=== PATIENT | female | born 1995 | race Caucasian/White ===

== ENCOUNTER 2018-11-03 19:09 | Emergency (ER) | payer OTHER ==
[~2018-11-03] VITALS: Ht 167.6 cm; Wt 77.3 kg
[2018-11-03] MEDS ORDERED: calcium (19:17)
[2018-11-03] MEDS ORDERED: prenatal (19:17)
[2018-11-03] MEDS ORDERED: FAMOTIDINE IV BAG 20 MG in APPROPRIATE DILUENT 1 EA IV ONE (20:30)
[2018-11-03] MEDS ORDERED: diphenhydrAMINE INJ 50MG/ML VIAL (J1200) IV ONE (20:30)
[2018-11-03] MEDS ORDERED: methylPREDNISolone INJ 125 MG/2 ML VIAL (J2930) IV ONE (20:30)
[2018-11-03] MEDS ORDERED: PEPC1TAB5 PO (22:35)
[2018-11-03] MEDS ORDERED: PRED20TA PO (22:35)
[2018-11-03] MEDS ORDERED: BENA25CA4 PO (22:35)
[2018-11-03 22:59] VITALS: BP 125/76
== END 2018-11-03 23:01 | disposition home or self-care (01) ==
LOC: M ED 19:09
DX: R21 Rash and other nonspecific skin eruption (principal); R13.10 Dysphagia, unspecified; T78.40XA Allergy, unspecified, initial encounter; X58.XXXA Exposure to other specified factors, initial encounter; Y92.89 Other specified places as the place of occurrence of the external cause; F17.210 Nicotine dependence, cigarettes, uncomplicated
CPT/HCPCS: 96365; 96375; 99284; J1200; J2930

== ENCOUNTER 2018-11-04 06:47 | Emergency (ER) | payer OTHER ==
[~2018-11-04] VITALS: Ht 167.6 cm; Wt 77.3 kg
[~2018-11-04 06:47] MED LIST: BENA25CA4 PO; PEPC1TAB5 PO; PRED20TA PO; calcium; prenatal
[2018-11-04] MEDS ORDERED: FAMOTIDINE INJ 20MG/2ML VIAL (S0028) IVP ONE (07:30)
[2018-11-04] MEDS ORDERED: NS 1,000 ML IV ONE (07:30)
[2018-11-04] MEDS ORDERED: methylPREDNISolone INJ 125 MG/2 ML VIAL (J2930) IV ONE (07:30)
[2018-11-04 10:33] VITALS: BP 117/61
== END 2018-11-04 11:03 | disposition home or self-care (01) ==
LOC: M ED 06:47
DX: L50.1 Idiopathic urticaria (principal); L29.9 Pruritus, unspecified; F17.210 Nicotine dependence, cigarettes, uncomplicated
CPT/HCPCS: 94760; 96361; 96374; 96375; 99284; J2930

== ENCOUNTER 2018-11-23 02:08 | Emergency (ER) | payer OTHER ==
[~2018-11-23] VITALS: Ht 167.6 cm; Wt 68.6 kg
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
[2018-11-23] MEDS ORDERED: DERMABOND TOPICAL SKIN ADHESIVE TOP ONE (04:30)
[2018-11-23 05:08] VITALS: BP 136/62
== END 2018-11-23 05:10 | disposition home or self-care (01) ==
LOC: M ED 02:08
DX: S01.91XA Laceration without foreign body of unspecified part of head, initial encounter (principal); W22.8XXA Striking against or struck by other objects, initial encounter; Y92.511 Restaurant or cafe as the place of occurrence of the external cause; T76.11XA Adult physical abuse, suspected, initial encounter; F17.210 Nicotine dependence, cigarettes, uncomplicated

== ENCOUNTER 2018-12-09 18:32 | Emergency (ER) | payer OTHER ==
[~2018-12-09] VITALS: Ht 170.2 cm; Wt 77.3 kg
[2018-12-09 18:32] VITALS: BP 130/63
[2018-12-09] MEDS ORDERED: ZYRTTAB8 PO (18:37)
[2018-12-09] MEDS ORDERED: GUAI1SOL2 PO (19:43)
== END 2018-12-09 19:51 | disposition home or self-care (01) ==
LOC: M ED 18:32
DX: J02.8 Acute pharyngitis due to other specified organisms (principal); H92.03 Otalgia, bilateral; J30.89 Other allergic rhinitis; F17.210 Nicotine dependence, cigarettes, uncomplicated; Z79.899 Other long term (current) drug therapy

== ENCOUNTER 2019-06-08 12:24 | Emergency (ER) | payer OTHER ==
[~2019-06-08] VITALS: Ht 170.2 cm; Wt 88.4 kg
[~2019-06-08 12:24] MED LIST changes: +GUAI1SOL2 PO; +ZYRTTAB8 PO
[2019-06-08] MEDS ORDERED: PROZ40CA PO (12:45)
[2019-06-08] MEDS ORDERED: ibupro (12:45)
[2019-06-08] MEDS ORDERED: HYDR-3363 PO (12:45)
[2019-06-08 13:39] LABS: BASO % 0.4 % (0.0-1.0); EOS # 0.3 10^3/uL (0.0-0.5); EOS % 3.1 % (0.0-3.0); HEMATOCRIT 43.6 % (36.0-47.0); HEMOGLOBIN 13.9 g/dl (12.0-15.5); LYMPH # 1.8 10^3/uL (1.5-5.0); LYMPH % 20.3 % (24.0-44.0); MEAN CORPUSCULAR HEMOGLOBIN 29.9 pg (27.0-33.0); MEAN CORPUSCULAR HGB CONC 31.9 g/dl (32.0-36.5); MEAN CORPUSCULAR VOLUME 93.8 fl (80.0-96.0); MONO # 0.7 10^3/uL (0.0-0.8); MONO % 7.9 % (0.0-5.0); NEUTROPHILS # 6.1 10^3/uL (1.5-8.5); NEUTROPHILS % 68.2 % (36.0-66.0); PLATELET COUNT, AUTOMATED 302 10^3/uL (150-450); RED BLOOD COUNT 4.65 10^6/uL (4.00-5.40)
[2019-06-08 13:52] LABS: BLOOD UREA NITROGEN 6 MG/DL (7-18); CALCIUM LEVEL 9.1 MG/DL (8.5-10.1); CARBON DIOXIDE LEVEL 30 MEQ/L (21-32); CHLORIDE LEVEL 109 MEQ/L (98-107); CREATININE FOR GFR 0.72 MG/DL (0.55-1.30); GLOMERULAR FILTRATION RATE > 60.0 (>60); GLUCOSE, FASTING 96 MG/DL (70-100); POTASSIUM SERUM 4.3 MEQ/L (3.5-5.1); SODIUM LEVEL 141 MEQ/L (136-145)
[2019-06-08] MEDS ORDERED: KETOROLAC 60 MG/2 ML VIAL (J1885) IM ONE (16:15)
--- NOTE | 2019-06-08 17:15 | REP ---
Pelvic ultrasound for pelvic pain/dysmenorrhea: The uterus is anteverted and normal size measuring 7.2 x 3.5 x 4.2 cm. The endometrium is not thickened measuring 8.8 mm. Right ovary: The right ovary measures 2.2 x 1.5 x 2.4 cm and is normal size. There is no dominant mass or cyst. Left ovary: Left ovary measures 2.7 x 1.1 x 1.5 cm. There is no dominant mass or cyst. There is no free fluid in the pelvis. The study is technically difficult because of bowel gas. No Doppler ultrasound is performed of the ovaries. Therefore, ovarian vascular flow cannot be determined on this study. Impression: Negative pelvic ultrasound. The study is technically difficult. There is no Doppler ultrasound of the ovaries. Electronically Signed by Daniel De León MD 06/08/2019 05:07 P
[2019-06-08 17:52] LABS: CHLAMYDIA DNA AMPLIFICATION NEGATIVE (NEGATIVE); GC DNA AMPLIFICATION NEGATIVE (NEGATIVE)
[2019-06-08] MEDS ORDERED: KETO10TAB PO (17:57)
[2019-06-08 18:11] VITALS: BP 130/82
== END 2019-06-08 18:26 | disposition home or self-care (01) ==
LOC: M ED 12:24
DX: N92.0 Excessive and frequent menstruation with regular cycle (principal); Z79.899 Other long term (current) drug therapy; F17.210 Nicotine dependence, cigarettes, uncomplicated
CPT/HCPCS: 36415; 76856; 80048; 81001; 84702; 85025; 86850; 86900; 86901; 87086; 87210; 87661; 96372; 99284; J1885